=== PATIENT | female | born 1955 | race Native Hawaiian/Other Pacific Islander ===

== ENCOUNTER 2018-04-18 11:57 | Day surgery (SDC) | payer OTHER ==
[2018-04-18 12:23] LABS: PLATELET COUNT 401 K/uL (152-353)
[2018-04-18 12:34] LABS: POTASSIUM 3.3 mmol/L (3.6-5.2)
== END 2018-04-18 15:26 | disposition home or self-care (01) ==
LOC: OR 11:57
PROVIDERS: Internal Medicine Gastroenterology
PROC: 0DB68ZZ Excision of Stomach, Via Natural or Artificial Opening Endoscopic (ICD-10-PCS; principal; 2018-04-18)
PROC: 0DB88ZZ Excision of Small Intestine, Via Natural or Artificial Opening Endoscopic (ICD-10-PCS; 2018-04-18)
DX: K29.00 Acute gastritis without bleeding (principal); K44.9 Diaphragmatic hernia without obstruction or gangrene; R10.12 Left upper quadrant pain; R11.0 Nausea; D50.8 Other iron deficiency anemias; K92.1 Melena; K21.0 Gastro-esophageal reflux disease with esophagitis
CPT/HCPCS: 80053; 85027; J2001; J2250; J2405; J2704

== ENCOUNTER 2018-05-02 12:00 | Day surgery (SDC) | payer OTHER | END 2018-05-02 16:15 | disposition home or self-care (01) | LOC: OR 12:00 | PROC: 0DBN8ZZ Excision of Sigmoid Colon, Via Natural or Artificial Opening Endoscopic (ICD-10-PCS; principal; 2018-05-02) | DX: K63.5 Polyp of colon (principal); K57.30 Diverticulosis of large intestine without perforation or abscess without bleeding; K64.8 Other hemorrhoids; D50.9 Iron deficiency anemia, unspecified; K92.2 Gastrointestinal hemorrhage, unspecified; R10.9 Unspecified abdominal pain | CPT/HCPCS: J2704 ==